=== PATIENT | male | born 1975 | race African-American/Black ===

== ENCOUNTER 2021-08-18 18:22 | Inpatient (IN) | payer SELFPAY ==
[~2021-08-18] VITALS: Ht 177.8 cm; Wt 85.8 kg
[2021-08-18] MEDS ORDERED: LIDOCAINE 1% Multi-Dose 20 ML VIAL. ONE (18:37)
[2021-08-18] MEDS ORDERED: fentaNYL PF VIAL 100 MCG/2 ML VIAL ONE (18:37)
[2021-08-18] MEDS ORDERED: MIDAZOLAM HCL/PF 2 MG/2 ML VIAL. ONE (18:37)
[2021-08-18] MEDS ORDERED: IODIXANOL 320 MG/ML 100 ML VIAL. ONE ×3 (18:37→19:22)
[2021-08-18] MEDS ORDERED: HEPARIN for ARTERIAL LINE 1,500 ML ONE (18:38)
[2021-08-18] MEDS ORDERED: HEPARIN for IV BOLUS 10,000 UNIT/10 ML VIAL. IV ONE ×2 (18:45→23:00)
[2021-08-18] MEDS ORDERED: HEPARIN for IV BOLUS 10,000 UNIT/10 ML VIAL. ONE (18:47)
[2021-08-18 18:53] LABS: BASO # 0.1 x10^3/uL (0.0-0.2); BASO % 1 % (0-3); EOS # 0.2 x10^3/uL (0.0-0.7); EOS % 4 % (0-3); HEMATOCRIT 45.8 % (39.0-53.0); HEMOGLOBIN 15.5 g/dL (13.0-17.5); LYMPH # 1.6 x10^3/uL (1.0-4.8); LYMPH % 29 % (24-48); MEAN CORPUSCULAR HEMOGLOBIN 29 pg (25-35); MEAN CORPUSCULAR HGB CONC 34 g/dL (31-37); MEAN CORPUSCULAR VOLUME 86 fL (79-100); MONO # 0.6 x10^3/uL (0.0-1.1); MONO % 11 % (0-9); NEUT % 56 % (31-73); PLATELET COUNT 223 x10^3/uL (140-400); RED BLOOD COUNT 5.34 x10^6/uL (4.30-5.70); RED CELL DISTRIBUTION WIDTH 14.8 % (11.5-14.5); WHITE BLOOD COUNT 5.4 x10^3/uL (4.0-11.0)
--- NOTE | 2021-08-18 18:54 | PHYS DOC ---
General Adult EDM: Chief Complaint: CHEST PAIN HPI: HPI: Patient is a 46 year old presents to the ER today with left anterior chest wall pain that radiates into neck. Patient was brought in by medics with a STEMI alert. Patient states over the last week that he has been having intermittent exertional chest pain that is getting worse and more frequent. Patient states that the pain feels like crushing chest pain on his midsternal chest. Patient does have a history of NC in the past does smoke cigarettes. Does have a history of hypertension and a strong family history. Review of Systems: Review of Systems: Constitutional: Denies fever or chills. [] Eyes: Denies change in visual acuity. [] HENT: Denies nasal congestion or sore throat. [] Respiratory: Denies cough or shortness of breath. [] Cardiovascular: Chest pain with radiation into the left neck. Dyspnea on exertion GI: Denies abdominal pain, nausea, vomiting, bloody stools or diarrhea. [] : Denies dysuria. [] Musculoskeletal: Denies back pain or joint pain. [] Integument: Denies rash. [] Neurologic: Denies headache, focal weakness or sensory changes. [] Endocrine: Denies polyuria or polydipsia. [] Lymphatic: Denies swollen glands. [] Psychiatric: Denies depression or anxiety. [] Heart Score: C/O Chest Pain: No HEART Score for Chest Pain: HEART Score for Chest Pain Response (Comments) Value History Highly Suspicious [address] Depression 2 Age >45 - < 65 1 Risk Factors >3 Risk Factors or Hx CAD 2 Total 7 Risk Factors: Risk Factors: DM, Current or recent (<one month) smoker, HTN, HLP, family history of CAD, obesity. Risk Scores: Score 0 - 3: 2.5% MACE over next 6 weeks - Discharge Home Score 4 - 6: 20.3% MACE over next 6 weeks - Admit for Clinical Observation Score 7 - 10: 72.7% MACE over next 6 weeks - Early Invasive Strategies Current Medications: Current Medications Medications (Trade) Dose Ordered Sig/Gloria Start Time Stop Time Status Last Admin Dose Admin Fentanyl Citrate (Fentanyl 2ml Vial) 100 mcg STK-MED ONCE 08/18/21 18:37 08/18/21 18:37 DC Heparin Sodium (Porcine) (Heparin Sodium) 4,000 unit 1X ONCE 08/18/21 18:45 08/18/21 18:46 UNV Heparin Sodium/ Sodium Chloride 1,500 ml @ As Directed STK-MED ONCE 08/18/21 18:38 08/18/21 18:38 DC Iodixanol (Visipaque 320) 100 ml STK-MED ONCE 08/18/21 18:37 08/18/21 18:37 DC Lidocaine HCl (Lidocaine 1% 20ml Vial) 20 ml STK-MED ONCE 08/18/21 18:37 08/18/21 18:38 DC Midazolam HCl (Versed) 2 mg STK-MED ONCE 08/18/21 18:37 08/18/21 18:37 DC Allergies: Allergies: Allergies Coded Allergies Type Severity Reaction Last Updated Verified No Known Drug Allergies 08/18/21 No Physical Exam: PE: Constitutional: Well developed, well nourished, no acute distress, non-toxic appearance. Patient appears sedated [] HENT: Normocephalic, atraumatic, bilateral external ears normal, oropharynx moist, no oral exudates, nose normal. [] Eyes: PERRLA, EOMI, conjunctiva normal, no discharge. [] Neck: Normal range of motion, no tenderness, supple, no stridor. [] Cardiovascular:Heart rate regular rhythm, no murmur [] Lungs & Thorax: Bilateral breath sounds clear to auscultation [] Abdomen: Bowel sounds normal, soft, no tenderness, no masses, no pulsatile masses. [] Skin: Warm, dry, no erythema, no rash. [] Back: No tenderness, no CVA tenderness. [] Extremities: No tenderness, no cyanosis, no clubbing, ROM intact, no edema. [] Neurologic: Alert and oriented X 3, normal motor function, normal sensory function, no focal deficits noted. [] Psychologic: Affect normal, judgement normal, mood normal. [] EKG: EKG: [] Patient is EKG is also different medics show significant ST elevations in 1 and aVL with depressions in 2 3 aVF as well as anterior wall ST elevations. Patient has a deep symmetrical T wave inversion in V6. EKG that was done in the ER demonstrates a normal sinus rhythm with a heart rate of 81. Patient has significant ST elevations in anterior leads with deep symme trical T wave inversion in V6 Radiology/Procedures: Radiology/Procedures: [] Course & Med Decision Making: Course & Med Decision Making Pertinent Labs and Imaging studies reviewed. (See chart for details) [] Interventional cardiology at bedside will take to the [facility] Discussed with hospitalist Adrianna Disclaimer: Adrianna Disclaimer: This electronic medical record was generated, in whole or in part, using a voice recognition dictation system. Departure Departure Impression: Primary Impression: STEMI (ST elevation myocardial infarction) Disposition: ADMITTED INPATIENT Condition: CRITICAL WILLIAM VIDALES DO Aug 18, 2021 18:54
[2021-08-18] MEDS ORDERED: MORPHINE SULFATE 2 MG/ML INJ. IV PRN (19:00)
[2021-08-18] MEDS ORDERED: 0.9 % SODIUM CHLORIDE 10 ML DISP.SYRIN. IV PRN (19:00)
[2021-08-18] MEDS ORDERED: ZOLPIDEM 5 MG TABLET. PO PRN (19:00)
[2021-08-18 19:05] LABS: PROTHROMBIN TIME PATIENT 12.9 SEC (11.7-14.0)
--- NOTE | 2021-08-18 19:09 | RAD ---
EXAMINATION: Chest radiograph. VIEWS: Single AP view of the chest COMPARISON: None INDICATION:46 years, Male, chest pain. FINDINGS: Defibrillator pads noted. Heart is mildly enlarged. Central pulmonary vasculature is prominent. Sligh tly increased interstitial markings. No focal airspace consolidation. No pneumothorax or pleural effu xavier. No pleural effusion or pneumothorax. No acute osseous process. IMPRESSION: Mild cardiomegaly with findings of pulmonary vascular congestion without overt interstitial pulmonary edema. Electronically signed by: Dallas Tapia DO (08/18/2021 7:07 PM) [facility]
--- NOTE | 2021-08-18 19:12 | PDOC1 ---
History and Physical Date of Admission Date of Admission DATE: 08/18/21 TIME: 19:03 Identification/Chief Complaint Chief Complaint Chest pain Source Source: Patient History of Present Illness History of Present Illness Patient is a 46-year-old male with past medical history hypertension, who presents to the ED with complaints of left-sided chest pain for the past week. Patient reports squeezing, crushing pressure. He was brought into the ER as a code STEMI. EKG on arrival showed ST elevations in lead 1, aVL, and anterior wall ST elevations. Cardiology was consulted and will take patient to the Microbiology Supervisor. Will admit patient for further medical management. Past Medical History Cardiovascular: HTN Past Surgical History Past Surgical History: No pertinent history Family History Family History: Coronary Artery Disease Social History Smoke: <1 pack per day ALCOHOL: occassional Drugs: Marijuana Current Problem List Problem List Problems Medical Problems: (1) STEMI (ST elevation myocardial infarction) Status: Acute Current Medications Current Medications Current Medications Fentanyl Citrate (Fentanyl 2ml Vial) 100 mcg STK-MED ONCE .ROUTE ; Start 08/18/21 at 18:37; Stop 08/18/21 at 18:37; Status DC Midazolam HCl (Versed) 2 mg STK-MED ONCE .ROUTE ; Start 08/18/21 at 18:37; Stop 08/18/21 at 18:37; Status DC Iodixanol (Visipaque 320) 100 ml STK-MED ONCE .ROUTE ; Start 08/18/21 at 18:37; Stop 08/18/21 at 18:37; Status DC Lidocaine HCl (Lidocaine 1% 20ml Vial) 20 ml STK-MED ONCE .ROUTE ; Start 08/18/21 at 18:37; Stop 08/18/21 at 18:38; Status DC Heparin Sodium/ Sodium Chloride 1,500 ml @ As Directed STK-MED ONCE .ROUTE ; Start 08/18/21 at 18:38; Stop 08/18/21 at 18:38; Status DC Heparin Sodium (Porcine) (Heparin Sodium) 4,000 unit 1X ONCE IV Last administered on 08/18/21at 18:53; Start 08/18/21 at 18:45; Stop 08/18/21 at 18:47; Status DC Heparin Sodium (Porcine) (Heparin Sodium) 10,000 unit STK-MED ONCE .ROUTE ; Start 08/18/21 at 18:47; Stop 08/18/21 at 18:47; Status DC Iodixanol (Visipaque 320) 100 ml STK-MED ONCE .ROUTE ; Start 08/18/21 at 18:54; Stop 08/18/21 at 18:55; Status DC Allergies Allergies: Coded Allergies: No Known Drug Allergies (Unverified , 08/18/21) ROS Review of System GENERAL: No history of weight change, weakness or fevers. SKIN: No bruising, hair changes or rashes. EYES: No blurred, double or loss of vision. NOSE AND THROAT: No history of nosebleeds, hoarseness or sore throat. HEART: Left-sided chest pain. Denies palpitations. LUNGS: Denies cough, hemoptysis, wheezing or shortness of breath. GASTROINTESTINAL: Denies nausea, vomiting, abdominal pain. GENITOURINARY: Denies dysuria, frequency, urgency, hematuria. NEUROLOGIC: Denies history of numbness, tingling, tremor or weakness. PSYCHIATRIC: Denies anxiety, denies depression. ENDOCRINE: No history of heat or cold intolerance, polyuria or polydipsia. EXTREMITIES: Denies muscle weakness, joint pain, pain on walking or stiffness. Physical Exam Physical Exam General: Alert, Oriented X3, Cooperative, mild distress HEENT: PERRLA, EOMI Lungs: Clear to auscultation, Normal air movement Heart: RRR, no murmurs Cardiovascular: S1, S2 Abdomen: Normal bowel sounds, Soft, No tenderness Extremities: No clubbing, No cyanosis Skin: No rashes, No significant lesion Neuro: Normal speech, Normal tone, Sensation intact Psych/Mental Status: Mental status NL, Mood NL Labs Labs Laboratory Tests Test 08/18/21 18:30 White Blood Count 5.4 x10^3/uL (4.0-11.0) Red Blood Count 5.34 x10^6/uL (4.30-5.70) Hemoglobin 15.5 g/dL (13.0-17.5) Hematocrit 45.8 % (39.0-53.0) Mean Corpuscular Volume 86 fL (79-100) Mean Corpuscular Hemoglobin 29 pg (25-35) Mean Corpuscular Hemoglobin Concent 34 g/dL (31-37) Red Cell Distribution Width 14.8 % (11.5-14.5) Platelet Count 223 x10^3/uL (140-400) Neutrophils (%) (Auto) 56 % (31-73) Lymphocytes (%) (Auto) 29 % (24-48) Monocytes (%) (Auto) 11 % (0-9) Eosinophils (%) (Auto) 4 % (0-3) Basophils (%) (Auto) 1 % (0-3) Neutrophils # (Auto) 3.0 x10^3/uL (1.8-7.7) Lymphocytes # (Auto) 1.6 x10^3/uL (1.0-4.8) Monocytes # (Auto) 0.6 x10^3/uL (0.0-1.1) Eosinophils # (Auto) 0.2 x10^3/uL (0.0-0.7) Basophils # (Auto) 0.1 x10^3/uL (0.0-0.2) Laboratory Tests Test 08/18/21 18:30 White Blood Count 5.4 x10^3/uL (4.0-11.0) Red Blood Count 5.34 x10^6/uL (4.30-5.70) Hemoglobin 15.5 g/dL (13.0-17.5) Hematocrit 45.8 % (39.0-53.0) Mean Corpuscular Volume 86 fL (79-100) Mean Corpuscular Hemoglobin 29 pg (25-35) Mean Corpuscular Hemoglobin Concent 34 g/dL (31-37) Red Cell Distribution Width 14.8 % (11.5-14.5) Platelet Count 223 x10^3/uL (140-400) Neutrophils (%) (Auto) 56 % (31-73) Lymphocytes (%) (Auto) 29 % (24-48) Monocytes (%) (Auto) 11 % (0-9) Eosinophils (%) (Auto) 4 % (0-3) Basophils (%) (Auto) 1 % (0-3) Neutrophils # (Auto) 3.0 x10^3/uL (1.8-7.7) Lymphocytes # (Auto) 1.6 x10^3/uL (1.0-4.8) Monocytes # (Auto) 0.6 x10^3/uL (0.0-1.1) Eosinophils # (Auto) 0.2 x10^3/uL (0.0-0.7) Basophils # (Auto) 0.1 x10^3/uL (0.0-0.2) VTE Prophylaxis Ordered VTE Prophylaxis Devices: No VTE Pharmacological Prophylaxi: Yes Assessment/Plan Assessment/Plan STEMI Hypertension Plan: Consult cardiology Patient taken urgently to Microbiology Supervisor, then ICU. He will be initiated on aspirin, beta-cyrus, statin, and FRANKIE/ARB prior to discharge Will establish tight blood pressure control prior to discharge FEN - Cardiac diet PPX - Heparin FULL CODE Dispo - inpatient for above Justifications for Admission Other Justification JANELLE RINCON MD Aug 18, 2021 19:12
[2021-08-18 19:14] LABS: CALCIUM 9.5 mg/dL (8.5-10.1); CREATININE 1.3 mg/dL (0.7-1.3); GFR 58.9; POTASSIUM 3.9 mmol/L (3.5-5.1)
[2021-08-18] MEDS ORDERED: hydrALAZINE 20 MG/ML VIAL. IVP PRN (19:15)
[2021-08-18] MEDS ORDERED: NITROGLYCERIN PREMIX 250 ML IV ONE (19:17)
[2021-08-18 19:23] LABS: ALBUMIN 3.5 g/dL (3.4-5.0); TOTAL BILIRUBIN 0.4 mg/dL (0.2-1.0)
[2021-08-18] MEDS ORDERED: IODIXANOL 320 MG/ML 100 ML VIAL. IART ONE (19:30)
[2021-08-18] MEDS ORDERED: NITROGLYCERIN PREMIX 250 ML IV PRN (19:30)
[2021-08-18] MEDS ORDERED: LIDOCAINE 1% Multi-Dose 20 ML VIAL. INJ ONE (19:30)
[2021-08-18 19:58] VITALS: BP 168/99
[2021-08-18] MEDS ORDERED: CLOPIDOGREL BISULFATE 75 MG TABLET PO ONE (20:00)
--- NOTE | 2021-08-18 20:24 | PDOC2 ---
CONSULT Date of Consult Date of Consult DATE: 08/18/21 TIME: 20:18 Reason for Consult Reason for Consult: Chest pain. Possible ST elevated myocardial infarction Referring Physician Referring Physician: Dr. Wolff Identification/Chief Complaint Chief Complaint Chest pain Source Source: Chart review, Patient History of Present Illness Reason for Visit: The patient is an 46-year-old male who presented to the emergency room with chest pain since earlier this morning. His EKG in the ambulance showed ST elevation in the septal and anterior leads but no clear inferior reciprocal changes. He was treated with aspirin and sedation. Upon arrival in the emergency room the patient was continuing to have chest pain. His EKG again showed a sinus rhythm with ST segment elevation in the septal and anterior leads with some T wave inversion in the V6. There is no classic reciprocal changes. He has a reported history of a myocardial infarction in [place] 2 years ago. He reports he had a heart cath but no stent placement. He also has a history of hypertension. He denies any drug allergies. He is on no medications. Past Medical History Cardiovascular: CAD, HTN Past Surgical History Past Surgical History: Other (Reported heart cath but no stent placement 2 years ago.) Family History Family History: Coronary Artery Disease, Hypertension Social History <1 pack per day ALCOHOL: occassional Drugs: Marijuana Current Problem List Problem List Problems Medical Problems: (1) STEMI (ST elevation myocardial infarction) Status: Acute Current Medications Current Medications Current Medications Fentanyl Citrate (Fentanyl 2ml Vial) 100 mcg STK-MED ONCE .ROUTE ; Start 08/18/21 at 18:37; Stop 08/18/21 at 18:37; Status DC Midazolam HCl (Versed) 2 mg STK-MED ONCE .ROUTE ; Start 08/18/21 at 18:37; Stop 08/18/21 at 18:37; Status DC Iodixanol (Visipaque 320) 100 ml STK-MED ONCE .ROUTE ; Start 08/18/21 at 18:37; Stop 08/18/21 at 18:37; Status DC Lidocaine HCl (Lidocaine 1% 20ml Vial) 20 ml STK-MED ONCE .ROUTE ; Start 08/18/21 at 18:37; Stop 08/18/21 at 18:38; Status DC Heparin Sodium/ Sodium Chloride 1,500 ml @ As Directed STK-MED ONCE .ROUTE ; Start 08/18/21 at 18:38; Stop 08/18/21 at 18:38; Status DC Heparin Sodium (Porcine) (Heparin Sodium) 4,000 unit 1X ONCE IV Last administered on 08/18/21at 18:53; Start 08/18/21 at 18:45; Stop 08/18/21 at 18:47; Status DC Heparin Sodium (Porcine) (Heparin Sodium) 10,000 unit STK-MED ONCE .ROUTE ; Start 08/18/21 at 18:47; Stop 08/18/21 at 18:47; Status DC Iodixanol (Visipaque 320) 100 ml STK-MED ONCE .ROUTE ; Start 08/18/21 at 18:54; Stop 08/18/21 at 18:55; Status DC Acetaminophen (Tylenol) 650 mg PRN Q6HRS PRN PO Headaches, Temp > 101.5'; Start 08/18/21 at 19:00 Zolpidem Tartrate (Ambien) 5 mg PRN QHS PRN PO INSOMNIA, MAY REPEAT IN 1HR; Start 08/18/21 at 19:00 Heparin Sodium (Porcine) (Heparin Sodium) 5,000 unit Q8HRS SQ ; Start 08/18/21 at 22:00 Sodium Chloride (Normal Saline Flush) 3 ml QSHIFT PRN IV AFTER MEDS AND BLOOD DRAWS; Start 08/18/21 at 19:00 Acetaminophen/ Hydrocodone Bitart (Lortab 5/325) 1 tab PRN Q4HRS PRN PO MILD PAIN 1-3; Start 08/18/21 at 19:00 Morphine Sulfate (Morphine Sulfate) 2 mg PRN Q1HR PRN IV PAIN; Start 08/18/21 at 19:00 Hydralazine HCl (Apresoline Inj) 10 mg PRN Q4HRS PRN IVP HYPERTENSION; Start 08/18/21 at 19:15 Nitroglycerin/ Dextrose 250 ml @ As Directed STK-MED ONCE IV ; Start 08/18/21 at 19:17; Stop 08/18/21 at 19:18; Status DC Iodixanol (Visipaque 320) 100 ml STK-MED ONCE .ROUTE ; Start 08/18/21 at 19:22; Stop 08/18/21 at 19:22; Status DC Heparin Sodium/ Sodium Chloride (HEPARIN for ARTERIAL LINE FLUSH) 1,000 unit 1X ONCE IART Last administered on 08/18/21at 19:38; Start 08/18/21 at 19:30; Stop 08/18/21 at 19:31; Status DC Heparin Sodium/ Sodium Chloride (HEPARIN for ARTERIAL LINE FLUSH) 1,000 unit 1X ONCE IART Last administered on 08/18/21 19:38; Start 08/18/21 at 19:30; Stop 08/18/21 at 19:31; Status DC Iodixanol (Visipaque 320) 100 ml 1X ONCE IART Last administered on 08/18/21at 19:38; Start 08/18/21 at 19:30; Stop 08/18/21 at 19:31; Status DC Lidocaine HCl (Lidocaine 1% 20ml Vial) 20 ml 1X ONCE INJ Last administered on 08/18/21at 19:39; Start 08/18/21 at 19:30; Stop 08/18/21 at 19:31; Status DC Nitroglycerin/ Dextrose 250 ml @ 1.5 mls/hr PRN DAILY PRN IV ELEVATED BP, SEE COMMENTS Last administered on 08/18/21at 19:45; Start 08/18/21 at 19:30 Clopidogrel Bisulfate (Plavix) 300 mg 1X ONCE PO Last administered on 08/18/21at 19:58; Start 08/18/21 at 20:00; Stop 08/18/21 at 20:01; Status DC Allergies Allergies: Coded Allergies: No Known Drug Allergies (Unverified , 08/18/21) ROS Cardiovascular: yes Chest Pain Physical Exam General: Other (Mild to moderate distress) HEENT: Atraumatic Lungs: Clear to auscultation Heart: Regular rate Abdomen: Normal bowel sounds Vitals VITALS Vital Signs Date Time Temp Pulse Resp B/P (MAP) Pulse Ox O2 Delivery O2 Flow Rate FiO2 08/18/21 19:58 56 16 100 Nasal Cannula 2.0 08/18/21 18:22 98.6 153/88 (109) 98.6 Labs Labs Originally in the emergency room patient's labs were pending. Laboratory Tests Test 08/18/21 18:30 White Blood Count 5.4 x10^3/uL (4.0-11.0) Red Blood Count 5.34 x10^6/uL (4.30-5.70) Hemoglobin 15.5 g/dL (13.0-17.5) Hematocrit 45.8 % (39.0-53.0) Mean Corpuscular Volume 86 fL (79-100) Mean Corpuscular Hemoglobin 29 pg (25-35) Mean Corpuscular Hemoglobin Concent 34 g/dL (31-37) Red Cell Distribution Width 14.8 % (11.5-14.5) Platelet Count 223 x10^3/uL (140-400) Neutrophils (%) (Auto) 56 % (31-73) Lymphocytes (%) (Auto) 29 % (24-48) Monocytes (%) (Auto) 11 % (0-9) Eosinophils (%) (Auto) 4 % (0-3) Basophils (%) (Auto) 1 % (0-3) Neutrophils # (Auto) 3.0 x10^3/uL (1.8-7.7) Lymphocytes # (Auto) 1.6 x10^3/uL (1.0-4.8) Monocytes # (Auto) 0.6 x10^3/uL (0.0-1.1) Eosinophils # (Auto) 0.2 x10^3/uL (0.0-0.7) Basophils # (Auto) 0.1 x10^3/uL (0.0-0.2) Prothrombin Time 12.9 SEC (11.7-14.0) Prothromb Time International Ratio 1.0 (0.8-1.1) Sodium Level 140 mmol/L (136-145) Potassium Level 3.9 mmol/L (3.5-5.1) Chloride Level 104 mmol/L (98-107) Carbon Dioxide Level 30 mmol/L (21-32) Anion Gap 6 (6-14) Blood Urea Nitrogen 13 mg/dL (8-26) Creatinine 1.3 mg/dL (0.7-1.3) Estimated GFR (Cockcroft-Gault) 58.9 BUN/Creatinine Ratio 10 (6-20) Glucose Level 105 mg/dL (70-99) Calcium Level 9.5 mg/dL (8.5-10.1) Total Bilirubin 0.4 mg/dL (0.2-1.0) Aspartate Amino Transf (AST/SGOT) 16 U/L (15-37) Alanine Aminotransferase (ALT/SGPT) 18 U/L (16-63) Alkaline Phosphatase 93 U/L (46-116) Troponin I High Sensitivity 125 ng/L (4-75) Total Protein 7.0 g/dL (6.4-8.2) Albumin 3.5 g/dL (3.4-5.0) Albumin/Globulin Ratio 1.0 (1.0-1.7) Laboratory Tests Test 08/18/21 18:30 White Blood Count 5.4 x10^3/uL (4.0-11.0) Red Blood Count 5.34 x10^6/uL (4.30-5.70) Hemoglobin 15.5 g/dL (13.0-17.5) Hematocrit 45.8 % (39.0-53.0) Mean Corpuscular Volume 86 fL (79-100) Mean Corpuscular Hemoglobin 29 pg (25-35) Mean Corpuscular Hemoglobin Concent 34 g/dL (31-37) Red Cell Distribution Width 14.8 % (11.5-14.5) Platelet Count 223 x10^3/uL (140-400) Neutrophils (%) (Auto) 56 % (31-73) Lymphocytes (%) (Auto) 29 % (24-48) Monocytes (%) (Auto) 11 % (0-9) Eosinophils (%) (Auto) 4 % (0-3) Basophils (%) (Auto) 1 % (0-3) Neutrophils # (Auto) 3.0 x10^3/uL (1.8-7.7) Lymphocytes # (Auto) 1.6 x10^3/uL (1.0-4.8) Monocytes # (Auto) 0.6 x10^3/uL (0.0-1.1) Eosinophils # (Auto) 0.2 x10^3/uL (0.0-0.7) Basophils # (Auto) 0.1 x10^3/uL (0.0-0.2) Prothrombin Time 12.9 SEC (11.7-14.0) Prothromb Time International Ratio 1.0 (0.8-1.1) Sodium Level 140 mmol/L (136-145) Potassium Level 3.9 mmol/L (3.5-5.1) Chloride Level 104 mmol/L (98-107) Carbon Dioxide Level 30 mmol/L (21-32) Anion Gap 6 (6-14) Blood Urea Nitrogen 13 mg/dL (8-26) Creatinine 1.3 mg/dL (0.7-1.3) Estimated GFR (Cockcroft-Gault) 58.9 BUN/Creatinine Ratio 10 (6-20) Glucose Level 105 mg/dL (70-99) Calcium Level 9.5 mg/dL (8.5-10.1) Total Bilirubin 0.4 mg/dL (0.2-1.0) Aspartate Amino Transf (AST/SGOT) 16 U/L (15-37) Alanine Aminotransferase (ALT/SGPT) 18 U/L (16-63) Alkaline Phosphatase 93 U/L (46-116) Troponin I High Sensitivity 125 ng/L (4-75) Total Protein 7.0 g/dL (6.4-8.2) Albumin 3.5 g/dL (3.4-5.0) Albumin/Globulin Ratio 1.0 (1.0-1.7) Assessment/Plan Assessment/Plan 1. Chest pain. Anterior ST segment elevation as noted above. Possible ST elevated myocardial infarction. History of an infarct 2 years ago with catheterization but no stent placement. However the patient reports being on no medication at this time. Have treated with aspirin and heparin. In this setting have recommended emergency catheterization and possible revascularization. Risks and benefits were discussed with the patient. He has agreed to proceed. 2. Hypertension. Patient's blood pressure is elevated in the emergency room but he is in significant distress. Will monitor and probably need to start on antihypertensive medications. 3. Tobacco abuse. 4. Uncertain cholesterol level. Will check lab in the morning. Thank you for allowing us to participate in the care of your patient. HARSH BENTLEY MD Aug 18, 2021 20:24
--- NOTE | 2021-08-18 20:26 | PDOC ---
FOLLOW UP Patient underwent cardiac catheterization without complications. Significant findings were moderate LAD disease with possible mild bridging. No lesions greater than 50%. Normal LV systolic function. Patient's pain has resolved. Will continue to monitor in the ICU. We will start on baseline medications for coronary artery disease. Full report to follow. HARSH BENTLEY MD Aug 18, 2021 20:26
[2021-08-18 20:30] VITALS: BP 131/86
[2021-08-18 21:00] VITALS: BP 159/94
[2021-08-18 22:00] VITALS: BP 160/96
[2021-08-18] MEDS ORDERED: HEPARIN for SUB-Q USE 5,000 UNIT/ML VIAL. SQ SCH (22:00)
[2021-08-18] MEDS ORDERED: HEPARIN for IV BOLUS 10,000 UNIT/10 ML VIAL. IV PRN (22:30)
[2021-08-18] MEDS ORDERED: ANTI-COAG MONITOR BY PHARMACY. MC PRN (22:45)
[2021-08-18] MEDS: HEPARIN 25,000UTS/250ML PREMIX 250 ML IV PRN (22:48)
[2021-08-18 23:00] VITALS: BP 167/88
[2021-08-19] VITALS (15 sets, daily range): BP systolic 119–175; BP diastolic 66–95
--- NOTE | 2021-08-19 00:45 | EKG ---
[facility] [address] [place] [address] Test Date: 2021-08-18 Test Time: 18:24:39 Pat Name: NAHOMY DESOUZA Department: Room: 104 1 Gender: M [employer]: : 1975 Requested By: WILLIAM VIDALES Order Number: [id number] Reading MD: Ptarick Dickinson Measurements Intervals [place] Rate: 81 P: 16 OR: 186 QRS: -33 QRSD: 90 T: 14 QT: 380 QTc: 447 Interpretive Statements SINUS RHYTHM LEFT ATRIAL ABNORMALITY ABNORMAL LEFT AXIS DEVIATION INCOMPLETE RIGHT BUNDLE BRANCH BLOCK NON SPECIFIC ST-T WAVE CHANGES POSSIBLE ISCHEMIA Electronically Signed On 08-19-2021 16:26:08 CDT by Patrick Dickinson
[2021-08-19] MEDS: ACETAMINOPHEN 325 MG TABLET. PO PRN ×2 (05:03→16:28)
--- NOTE | 2021-08-19 05:39 | NUR ---
Pt was brought to ICU at [facility] [employer]. Pt a/o x4, bedrest per protocol post ship[employer], afebrile, room air. Pt has denied any chest pain all shift and right groin site is warm, soft with palpable pulses on right side. Pt's was called and updated about patient condition. Heparin drip was started using cardiac protocol per doctor orders. Pt's only complaint is a headache, tylenol given.
[2021-08-19 05:51] LABS: BASO # 0.1 x10^3/uL (0.0-0.2); BASO % 1 % (0-3); EOS # 0.2 x10^3/uL (0.0-0.7); EOS % 4 % (0-3); HEMATOCRIT 44.7 % (39.0-53.0); HEMOGLOBIN 15.3 g/dL (13.0-17.5); LYMPH # 1.8 x10^3/uL (1.0-4.8); LYMPH % 32 % (24-48); MEAN CORPUSCULAR HEMOGLOBIN 29 pg (25-35); MEAN CORPUSCULAR HGB CONC 34 g/dL (31-37); MEAN CORPUSCULAR VOLUME 85 fL (79-100); MONO # 0.6 x10^3/uL (0.0-1.1); MONO % 11 % (0-9); NEUT # 2.9 x10^3/uL (1.8-7.7); NEUT % 52 % (31-73); PLATELET COUNT 206 x10^3/uL (140-400); RED BLOOD COUNT 5.24 x10^6/uL (4.30-5.70); RED CELL DISTRIBUTION WIDTH 14.9 % (11.5-14.5); WHITE BLOOD COUNT 5.7 x10^3/uL (4.0-11.0)
[2021-08-19 06:23] LABS: CALCIUM 8.4 mg/dL (8.5-10.1); CREATININE 1.1 mg/dL (0.7-1.3); GFR 71.4; POTASSIUM 3.9 mmol/L (3.5-5.1)
[2021-08-19 06:34] LABS: CHOLESTEROL/HDL RATIO 2.8
--- NOTE | 2021-08-19 09:31 | PDOC ---
[facility] PROGRESS NOTE Date of Service DOS: DATE: 08/19/21 TIME: 09:29 Chief Complaint Chief Complaint Anterior STEMI - per cardiology was coronary vasopasm. No significant CAD. Myocardial bridging noted by information resource consultant. HTN -started on amlodipine isosorbide Tobacco use - counseled on cessatino Sinus bradycardia -asymptomatic. Will check orthostatics after echocardiogram. Unable to take beta-cyrus or non-dihydropyridine calcium channel cyrus (verapamil and diltiazem relatively contraindicated) ? H/o HOCM -with early cardiac actions monitor this possibility. Due to his traveling for work he has not had any cardiology follow-up. Will assess on echocardiogram today FEN - Cardiac diet PPX - Heparin FULL CODE Dispo - inpatient History of Present Illness History of Present Illness Patient is a 46-year-old male with past medical history hypertension, who presents to the ED with complaints of left-sided chest pain for the past week. Patient reports squeezing, crushing pressure. He was brought into the ER as a code STEMI. EKG on arrival showed ST elevations in lead 1, aVL, and anterior wall ST elevations. Cardiology was consulted and will take patient to the Fluorescent Lamp Replacer. 08/19: Maintained on heparin GTT. S/p cardiac cath on 08/18/2021 with no stent placement, medical management for CAD. He has some right groin pain currently chest pain improved no shortness of breath. Did have cardiac cath in [place] over 2 years ago with same but he notes that time he was diagnosed with HOCM. He does note his mother early of sudden cardiac he thinks in her 50s. He travels for work and has been working in [employer] all of the country has experienced any other hospitalizations since his event 2 years ago. Cardiology has started her blood isosorbide and amlodipine. His heart rate has been in the 50s.. Vitals/I&O Vitals/I&O: Vital Signs Date Time Temp Pulse Resp B/P (MAP) Pulse Ox O2 Delivery O2 Flow Rate FiO2 08/19/21 06:00 63 15 147/92 (110) 100 Room Air 08/19/21 04:00 98.3 98.3 08/18/21 19:58 2.0 I & O 08/18/21 08/18/21 08/19/21 15:00 23:00 07:00 Intake Total 500 ml 341.3 ml Output Total 400 ml 800 ml Balance 100 ml -458.7 ml Physical Exam General: Other (Mild to moderate distress) Heart: Regular rate Abdomen: Normal bowel sounds Labs Labs: Laboratory Tests Test 08/18/21 18:30 08/18/21 21:50 08/19/21 05:25 White Blood Count 5.4 x10^3/uL (4.0-11.0) 5.7 x10^3/uL (4.0-11.0) Red Blood Count 5.34 x10^6/uL (4.30-5.70) 5.24 x10^6/uL (4.30-5.70) Hemoglobin 15.5 g/dL (13.0-17.5) 15.3 g/dL (13.0-17.5) Hematocrit 45.8 % (39.0-53.0) 44.7 % (39.0-53.0) Mean Corpuscular Volume 86 fL (79-100) 85 fL (79-100) Mean Corpuscular Hemoglobin 29 pg (25-35) 29 pg (25-35) Mean Corpuscular Hemoglobin Concent 34 g/dL (31-37) 34 g/dL (31-37) Red Cell Distribution Width 14.8 % (11.5-14.5) 14.9 % (11.5-14.5) Platelet Count 223 x10^3/uL (140-400) 206 x10^3/uL (140-400) Neutrophils (%) (Auto) 56 % (31-73) 52 % (31-73) Lymphocytes (%) (Auto) 29 % (24-48) 32 % (24-48) Monocytes (%) (Auto) 11 % (0-9) 11 % (0-9) Eosinophils (%) (Auto) 4 % (0-3) 4 % (0-3) Basophils (%) (Auto) 1 % (0-3) 1 % (0-3) Neutrophils # (Auto) 3.0 x10^3/uL (1.8-7.7) 2.9 x10^3/uL (1.8-7.7) Lymphocytes # (Auto) 1.6 x10^3/uL (1.0-4.8) 1.8 x10^3/uL (1.0-4.8) Monocytes # (Auto) 0.6 x10^3/uL (0.0-1.1) 0.6 x10^3/uL (0.0-1.1) Eosinophils # (Auto) 0.2 x10^3/uL (0.0-0.7) 0.2 x10^3/uL (0.0-0.7) Basophils # (Auto) 0.1 x10^3/uL (0.0-0.2) 0.1 x10^3/uL (0.0-0.2) Prothrombin Time 12.9 SEC (11.7-14.0) Prothromb Time International Ratio 1.0 (0.8-1.1) Sodium Level 140 mmol/L (136-145) 139 mmol/L (136-145) Potassium Level 3.9 mmol/L (3.5-5.1) 3.9 mmol/L (3.5-5.1) Chloride Level 104 mmol/L (98-107) 106 mmol/L (98-107) Carbon Dioxide Level 30 mmol/L (21-32) 27 mmol/L (21-32) Anion Gap 6 (6-14) 6 (6-14) Blood Urea Nitrogen 13 mg/dL (8-26) 11 mg/dL (8-26) Creatinine 1.3 mg/dL (0.7-1.3) 1.1 mg/dL (0.7-1.3) Estimated GFR (Cockcroft-Gault) 58.9 71.4 BUN/Creatinine Ratio 10 (6-20) Glucose Level 105 mg/dL (70-99) 88 mg/dL (70-99) Calcium Level 9.5 mg/dL (8.5-10.1) 8.4 mg/dL (8.5-10.1) Total Bilirubin 0.4 mg/dL (0.2-1.0) Aspartate Amino Transf (AST/SGOT) 16 U/L (15-37) Alanine Aminotransferase (ALT/SGPT) 18 U/L (16-63) Alkaline Phosphatase 93 U/L (46-116) Troponin I High Sensitivity 125 ng/L (4-75) 136 ng/L (4-75) 137 ng/L (4-75) Total Protein 7.0 g/dL (6.4-8.2) Albumin 3.5 g/dL (3.4-5.0) Albumin/Globulin Ratio 1.0 (1.0-1.7) Heparin Anti-Xa Act, Unfractionated 0.44 IU/mL (0.30-0.70) Triglycerides Level 61 mg/dL (0-150) Cholesterol Level 158 mg/dL (0-200) LDL Cholesterol, Calculated 89 mg/dL (0-100) VLDL Cholesterol, Calculated 12 mg/dL (0-40) Non-HDL Cholesterol Calculated 101 mg/dL (0-129) HDL Cholesterol 57 mg/dL (40-60) Cholesterol/HDL Ratio 2.8 Assessment and Plan Assessmemt and Plan Problems Medical Problems: (1) STEMI (ST elevation myocardial infarction) Status: Acute Comment Review of Relevant I have reviewed the following items diana (where applicable) has been applied. Medications: Current Medications Medications (Trade) Dose Ordered Sig/Gloria Route PRN Reason Start Time Stop Time Status Last Admin Dose Admin Heparin Sodium (Porcine) (Heparin Sodium) 4,000 unit 1X ONCE IV 08/18/21 18:45 08/18/21 18:47 DC 08/18/21 18:53 Acetaminophen (Tylenol) 650 mg PRN Q6HRS PRN PO Headaches, Temp > 101.5' 08/18/21 19:00 08/19/21 05:03 Heparin Sodium/ Sodium Chloride (HEPARIN for ARTERIAL LINE FLUSH) 1,000 unit 1X ONCE IART 08/18/21 19:30 08/18/21 19:31 DC 08/18/21 19:38 Heparin Sodium/ Sodium Chloride (HEPARIN for ARTERIAL LINE FLUSH) 1,000 unit 1X ONCE IART 08/18/21 19:30 08/18/21 19:31 DC 08/18/21 19:38 Iodixanol (Visipaque 320) 100 ml 1X ONCE IART 08/18/21 19:30 08/18/21 19:31 DC 08/18/21 19:38 Lidocaine HCl (Lidocaine 1% 20ml Vial) 20 ml 1X ONCE INJ 08/18/21 19:30 08/18/21 19:31 DC 08/18/21 19:39 Nitroglycerin/ Dextrose 250 ml @ 1.5 mls/hr PRN DAILY PRN IV ELEVATED BP, SEE COMMENTS 08/18/21 19:30 08/18/21 19:45 Clopidogrel Bisulfate (Plavix) 300 mg 1X ONCE PO 08/18/21 20:00 08/18/21 20:01 DC 08/18/21 19:58 Heparin Sodium (Porcine) (Heparin Sodium) 4,000 unit 1X ONCE IV 08/18/21 23:00 08/18/21 23:01 DC 08/18/21 22:44 Heparin Sodium/ Dextrose 250 ml @ 10 mls/hr CONT PRN IV PER PROTOCOL 08/18/21 22:30 08/18/21 22:48 Info (Anti-Coagulation Monitoring By Pharmacy) 1 each PRN DAILY PRN MC PER PROTOCOL 08/18/21 22:45 08/19/21 00:47 Justifications for Admission Other Justification DAMIAN FUNES MD Aug 19, 2021 09:31
[2021-08-19] MEDS ORDERED: CLOPIDOGREL BISULFATE 75 MG TABLET PO ONE (10:00)
--- NOTE | 2021-08-19 10:05 | PDOC ---
GRACE SWENSON YARN TEXTURING MACHINE OPERATOR 08/19/21 1005: CARDIO Progress Notes Date and Time Date of Service 08/19/2021 Time of Evaluation 0940 Subjective Subjective: No Chest Pain, No shortness of breath, No Palpitations Vitals Vitals Vital Signs Date Time Temp Pulse Resp B/P (MAP) Pulse Ox O2 Delivery O2 Flow Rate FiO2 08/19/21 06:00 63 15 147/92 (110) 100 Room Air 08/19/21 04:00 98.3 98.3 08/18/21 19:58 2.0 Weight Weight [ ] Input and Output Intake and Output Intake and Output 08/19/21 07:00 Intake Total 841.3 ml Output Total 1200 ml Balance -358.7 ml Intake Oral 750 ml IV Total 91.3 ml Output Urine Total 1200 ml Laboratory Labs Laboratory Tests Test 08/18/21 18:30 08/18/21 21:50 08/19/21 05:25 White Blood Count 5.4 x10^3/uL (4.0-11.0) 5.7 x10^3/uL (4.0-11.0) Red Blood Count 5.34 x10^6/uL (4.30-5.70) 5.24 x10^6/uL (4.30-5.70) Hemoglobin 15.5 g/dL (13.0-17.5) 15.3 g/dL (13.0-17.5) Hematocrit 45.8 % (39.0-53.0) 44.7 % (39.0-53.0) Mean Corpuscular Volume 86 fL (79-100) 85 fL (79-100) Mean Corpuscular Hemoglobin 29 pg (25-35) 29 pg (25-35) Mean Corpuscular Hemoglobin Concent 34 g/dL (31-37) 34 g/dL (31-37) Red Cell Distribution Width 14.8 % (11.5-14.5) 14.9 % (11.5-14.5) Platelet Count 223 x10^3/uL (140-400) 206 x10^3/uL (140-400) Neutrophils (%) (Auto) 56 % (31-73) 52 % (31-73) Lymphocytes (%) (Auto) 29 % (24-48) 32 % (24-48) Monocytes (%) (Auto) 11 % (0-9) 11 % (0-9) Eosinophils (%) (Auto) 4 % (0-3) 4 % (0-3) Basophils (%) (Auto) 1 % (0-3) 1 % (0-3) Neutrophils # (Auto) 3.0 x10^3/uL (1.8-7.7) 2.9 x10^3/uL (1.8-7.7) Lymphocytes # (Auto) 1.6 x10^3/uL (1.0-4.8) 1.8 x10^3/uL (1.0-4.8) Monocytes # (Auto) 0.6 x10^3/uL (0.0-1.1) 0.6 x10^3/uL (0.0-1.1) Eosinophils # (Auto) 0.2 x10^3/uL (0.0-0.7) 0.2 x10^3/uL (0.0-0.7) Basophils # (Auto) 0.1 x10^3/uL (0.0-0.2) 0.1 x10^3/uL (0.0-0.2) Prothrombin Time 12.9 SEC (11.7-14.0) Prothromb Time International Ratio 1.0 (0.8-1.1) Sodium Level 140 mmol/L (136-145) 139 mmol/L (136-145) Potassium Level 3.9 mmol/L (3.5-5.1) 3.9 mmol/L (3.5-5.1) Chloride Level 104 mmol/L (98-107) 106 mmol/L (98-107) Carbon Dioxide Level 30 mmol/L (21-32) 27 mmol/L (21-32) Anion Gap 6 (6-14) 6 (6-14) Blood Urea Nitrogen 13 mg/dL (8-26) 11 mg/dL (8-26) Creatinine 1.3 mg/dL (0.7-1.3) 1.1 mg/dL (0.7-1.3) Estimated GFR (Cockcroft-Gault) 58.9 71.4 BUN/Creatinine Ratio 10 (6-20) Glucose Level 105 mg/dL (70-99) 88 mg/dL (70-99) Calcium Level 9.5 mg/dL (8.5-10.1) 8.4 mg/dL (8.5-10.1) Total Bilirubin 0.4 mg/dL (0.2-1.0) Aspartate Amino Transf (AST/SGOT) 16 U/L (15-37) Alanine Aminotransferase (ALT/SGPT) 18 U/L (16-63) Alkaline Phosphatase 93 U/L (46-116) Troponin I High Sensitivity 125 ng/L (4-75) 136 ng/L (4-75) 137 ng/L (4-75) Total Protein 7.0 g/dL (6.4-8.2) Albumin 3.5 g/dL (3.4-5.0) Albumin/Globulin Ratio 1.0 (1.0-1.7) Heparin Anti-Xa Act, Unfractionated 0.44 IU/mL (0.30-0.70) Triglycerides Level 61 mg/dL (0-150) Cholesterol Level 158 mg/dL (0-200) LDL Cholesterol, Calculated 89 mg/dL (0-100) VLDL Cholesterol, Calculated 12 mg/dL (0-40) Non-HDL Cholesterol Calculated 101 mg/dL (0-129) HDL Cholesterol 57 mg/dL (40-60) Cholesterol/HDL Ratio 2.8 Physical Exam HEENT: Neck Supple W Full Motion Chest: Symmetric LUNGS: Clear to Auscultation Heart: S1S2, RRR (SR/SB) Abdomen: Soft N/T Extremities: No Calf Tenderness Neurology: alert, oriented, follow commands Assessment Assessment 1. Anterior STEMI: due to vasopasm with also possible myocardial bridging.. LHC revealed no intervenable lesions.Final report pending 2. HTN: labile 3. Tobaccoism 4. Asymptomatic SB: lowest mid40s no pauses Recommendations 1. DC NTG drip and start on imdur and norvasc No AV jonny blocking agents. Trend BP 2. TTE today 3. ASA/plavix. Secondary prevention measures 4. Anticpate DC tomorrow. Heparin for 24 hrs post C 5. He is going back to [place] tomorrow and he will need cardiology refereral over there 6. Smoking cessation Justicifation of Admission Dx: Justifications for Admission: Justification of Admission Dx: Yes HARSH BENTLEY MD 08/19/21 1515: CARDIO Progress Notes Assessment Assessment Patient seen and examined He looks and feels better. I agree with our nurse practitioners assessment and plan. 1. Anterior NSTEMI: Possibly due to component of vasospasm. Moderate mid LAD disease. We will continue medical treatment. Intact LV systolic function. We will treat with aspirin and Plavix. We will try a trial of Imdur and Norvasc. Monitoring rhythm. 2. HTN: labile 3. Tobaccoism 4. Asymptomatic SB: lowest mid40s no pauses GRACE SWENSON YARN TEXTURING MACHINE OPERATOR Aug 19, 2021 10:05 HARSH BENTLEY MD Aug 19, 2021 15:15
--- NOTE | 2021-08-19 10:24 | CARD ---
MR#: [id number] Date of Study: 08/18/2021 Ordering Physician: HARSH DICKINSON, Referring Physician: HARSH DICKINSON, Tech: Barbara Quiles, RT(R) APPROVED REPORT Procedures Left heart catheterization Selective coronary angiogram Left ventriculogram The patient is a 46-year-old male who presented to the emergency room with episodes of chest pain. H is pain persisted despite aspirin and heparin. His EKG showed ST elevation in the septal and anterio r leads but no clear reciprocal changes. He reports a heart catheterization approximately 2 years ag o with no intervention performed. However he is taking no medications. In the setting of new onset of chest pain which has continued as well as his abnormal EKG a cardiac catheterization with possible revascularization was recommended. Risks and benefits were discussed. The patient gave consent to proceed. After informed consent was obtained the patient was brought to the heart catheterization lab. The ar ea of the right femoral artery was prepared in usual manner with Betadine, sterile draping and local anesthetic. An 18-gauge needle was used to enter the right femoral artery, a wire placed and a 6 Adam nch sheath placed over the wire. A 6 [place]uneian Vikash diagnostic right catheter was used to engage th e RCA and sequential injections of various views were obtained. A 6 [place]uneian JL4 guide was then used t o engage the left system. Sequential injections in various views were obtained. A pigtail catheter was advanced in the left ventricle. Measurements were obtained. A 30 degree RODGERS left ventriculogram was performed. Pullback pressures were measured. All catheter placements were over a J-wire. Foll owing our imaging the patient was found to have a mid 40% LAD lesion. No severe lesions were identif ied. At this time the patient was pain-free. The catheter was removed. The sheath was removed and sealed with an Angio-Seal. The patient was moved to the holding area. No immediate complications w ere identified. Findings. Hemodynamics. LV 140/2/18. Aortic root 134/68. Coronaries. Left main. The left main was a large vessel with no lesions. Left anterior descending. The LAD was a moderate size vessel with normal distribution. It had a mid 40% lesion present. Left circumflex. The left circumflex was a moderate size vessel. It had no lesions. Right coronary artery. The right coronary was a moderate size vessel. It had no lesions. Left ventriculogram. The left ventricle showed normal size and systolic function. Estimated ejection fraction was 55%. <Conclusion> 1. Moderate single-vessel coronary artery disease. 2. Intact LV systolic function. No sedation was given. Fluoroscopy time of 4.1 minutes. Dose. 51.3 Gycm2 Contrast. 140 cc VISI The patient was independently monitored throughout the procedure. All protective equipment was employed. Estimated blood loss of 15 cc. Signed by : Harsh Dickinson MD Electronically Approved : 08/19/2021 10:23:50
[2021-08-19] MEDS: ISOSORBIDE MONONITRATE ER 30 MG TAB.ER.24H PO SCH (13:05)
--- NOTE | 2021-08-19 16:02 | CARD ---
MR#: [id number] Date of Study: 08/19/2021 Ordering Physician: GRACE SWENSON, Referring Physician: GRACE SWENSON Tech: Robert Zimmer [facility] APPROVED REPORT EXAM: Two-dimensional and M-mode echocardiogram with Doppler and color Doppler. Other Information Quality : AverageGoodHR: 60bpm Rhythm : NSR INDICATION Anterior STEMI due to vasospasm. RISK FACTORS Hypertension Smoking 2D DIMENSIONS Left Atrium(2D)3.1 (1.6-4.0cm)IVSd1.6 (0.7-1.1cm) Aortic Root(2D)4.4 (2.0-3.7cm)LVDd4.4 (3.9-5.9cm) LVOT Diameter2.4 (1.8-2.4cm)PWd1.6 (0.7-1.1cm) LA Tzfygm00 (18-58mL)LVDs3.1 (2.5-4.0cm) FS (%) 27.9 %SV46.4 ml LVEF(%)54.3 (>50%) Aortic Valve AoV Peak Zhen.127.2cm/sAoV VTI22.9cm AO Peak GR.6.5mmHgLVOT VTI 19.62cm AO Mean GR.3mmHgAI P 1/2 [id number] Mitral Valve MV E Utecregg85.9cm/sMV E Peak Gr.3mmHg MV DECEL [id number] A Vixxqvhc81.7cm/s MV E Mean Gr.1mmHgE/A Ratio1.2 TDI Lateral E' P. V7.08cm/sMedial E' P. V5.73cm/s E/Lateral E'8.3E/Medial E'10.3 Pulmonary Valve PV Peak Djqkswnt33.8cm/s Tricuspid Valve TR P. Lztmadgd197mh/sTR Peak Gr.10mmHg Pulmonary Vein S1 Znkqfget58.6cm/sS2 Emcblzkc39.26cm/s D2 Zuyydzob39.3cm/s LEFT VENTRICLE The left ventricle is normal size. There is moderate concentric left ventricular hypertrophy. The lef t ventricular systolic function is normal. The ejection fraction is 55%. There is normal LV segmental wall motion. Tissue Doppler imaging reveals moderate left ventricular diastolic dysfunction. No left ventricle thrombus noted on this study. There is no ventricular septal defect visualized. There is n o left ventricular aneurysm. There is no mass noted in the left ventricle. RIGHT VENTRICLE The right ventricle is normal size. There is normal right ventricular wall thickness. The right ventr icular systolic function is normal. ATRIA The left atrium size is normal. The right atrium size is normal. The interatrial septum is intact wit h no evidence for an atrial septal defect or patent foramen ovale as noted on 2-D or Doppler imaging. AORTIC VALVE The aortic valve is mildly thickened but opens well. The aortic valve is trileaflet. Doppler and Sturgeon r Flow revealed mild aortic regurgitation. There is no significant aortic valvular stenosis. There is no aortic valvular vegetation. MITRAL VALVE The mitral valve is normal in structure and function. There is no evidence of mitral valve prolapse. There is no mitral valve stenosis. Doppler and Color-flow revealed trace to mild mitral regurgitation . TRICUSPID VALVE The tricuspid valve is normal in structure and function. Doppler and Color Flow revealed trace tricus pid regurgitation. There is no tricuspid valve prolapse or vegetation. There is no tricuspid valve st enosis. PULMONIC VALVE The pulmonary valve is normal in structure and function. There is trivial pulmonic regurgitation. The re is no pulmonic valvular stenosis. GREAT VESSELS The aortic root is dilated at 4.4cm The proximal ascending aorta is mildly dilated at (4.1cm) The pul monary artery is normal. The IVC is normal in size and collapses >50% with inspiration. PERICARDIAL EFFUSION There is no pleural effusion. There is no evidence of significant pericardial effusion. Critical Notification Critical Value: No <Conclusion> The left ventricular systolic function is normal. The ejection fraction is 55%. There is normal LV segmental wall motion. Mild aortic regurgitation. Trace to mild mitral regurgitation. Trace tricuspid regurgitation. The aortic root is dilated at 4.4 cm. There is no evidence of significant pericardial effusion. Signed by : Canelo Elam, Electronically Approved : 08/19/2021 16:02:05
[2021-08-19] MEDS: HYDROcodone/APAP 5/325MG 1 TAB TABLET PO PRN (20:44)
[2021-08-19] MEDS: HEPARIN 25,000UTS/250ML PREMIX 250 ML IV PRN (20:46)
[2021-08-19] MEDS ORDERED: ATORVASTATIN CALCIUM 20 MG TABLET PO SCH (21:00)
[2021-08-20 02:15] VITALS: BP 148/73
[2021-08-20 07:00] VITALS: BP 135/87
[2021-08-20] MEDS ORDERED: CLOPIDOGREL BISULFATE 75 MG TABLET PO SCH (08:00)
[2021-08-20] MEDS ORDERED: ASPIRIN ENTERIC COATED 81 MG TABLET.DR. PO SCH (08:00)
[2021-08-20] MEDS: ISOSORBIDE MONONITRATE ER 30 MG TAB.ER.24H PO SCH (08:35)
[2021-08-20] MEDS ORDERED: ISOSORBIDE MONONITRATE ER 30 MG TAB.ER.24H PO SCH (09:00)
[2021-08-20] MEDS: HYDROcodone/APAP 5/325MG 1 TAB TABLET PO PRN (10:21)
[2021-08-20 11:00] VITALS: BP 142/80
--- NOTE | 2021-08-20 11:02 | PDOC ---
GRACE SWENSON RADIO STATION OPERATOR 08/20/21 1101: CARDIO Progress Notes Date and Time Date of Service 08/20/2021 Time of Evaluation 1100 Subjective Subjective: No Chest Pain, No shortness of breath, No Palpitations Vitals Vitals Vital Signs Date Time Temp Pulse Resp B/P (MAP) Pulse Ox O2 Delivery O2 Flow Rate FiO2 08/20/21 10:21 18 08/20/21 08:35 65 135/87 08/20/21 07:00 98.1 98 Room Air 98.1 Weight Weight [ ] Input and Output Intake and Output Intake and Output 08/20/21 07:00 Intake Total 2708.8 ml Output Total 2780 ml Balance -71.2 ml Intake Oral 2700 ml IV Total 8.8 ml Output Urine Total 2780 ml Laboratory Labs Laboratory Tests Test 08/19/21 11:14 08/19/21 19:46 08/20/21 03:00 08/20/21 09:08 Heparin Anti-Xa Act, Unfractionated 0.28 IU/mL (0.30-0.70) 0.29 IU/mL (0.30-0.70) 0.55 IU/mL (0.30-0.70) 0.63 IU/mL (0.30-0.70) Physical Exam HEENT: Neck Supple W Full Motion Chest: Symmetric LUNGS: Clear to Auscultation Heart: S1S2, RRR (SR/SB) Abdomen: Soft N/T Extremities: No Calf Tenderness Neurology: alert, oriented, follow commands Assessment Assessment 1. Anterior STEMI: due to vasopasm with also possible myocardial bridging.. LHC revealed no intervenable lesions. 40% lesion to LAD 2. HTN: better controlled 3. Tobaccoism 4. Asymptomatic SB: lowest mid40s no pauses 5. Moderate LVH: no HOCM. EF and LV WM nml Recommendations 1. Continue imdur and norvasc 2. ASA/plavix. plavix for at least 1 mo. Secondary prevention measures 3. Anticpate DC today 4. He is going back to [place] and he will need cardiology referral over there 5. Smoking cessation Justicifation of Admission Dx: Justifications for Admission: Justification of Admission Dx: Yes HARSH BENTLEY MD 08/20/21 1618: CARDIO Progress Notes Assessment Assessment Patient seen and examined The patient looks well and denies chest pain. Anterior NSTEMI: Probably due to vasopasm with also possible myocardial bridging.. LHC revealed no intervenable lesions. 40% lesion to LAD. Continue on present medications including aspirin, Plavix, Imdur and Norvasc. Follow-up at home. HTN: better controlled Tobaccoism Asymptomatic SB: lowest mid 40s no pauses Moderate LVH: no HOCM. EF and LV WM nml GRACE SWENSON APRN Aug 20, 2021 11:01 HARSH BENTLEY MD Aug 20, 2021 16:18
--- NOTE | 2021-08-20 11:49 | PDOC ---
[facility] PROGRESS NOTE Date of Service DOS: DATE: 08/20/21 TIME: 11:37 Chief Complaint Chief Complaint Anterior STEMI - per cardiology was coronary vasopasm. No significant CAD. Myocardial bridging noted by focus puller. HTN -started on amlodipine isosorbide Tobacco use - counseled on cessatino Sinus bradycardia -asymptomatic. Will check orthostatics after echocardiogram. Unable to take beta-cyrus or non-dihydropyridine calcium channel cyrus (verapamil and diltiazem relatively contraindicated) ? H/o HOCM -with early cardiac actions monitor this possibility. Due to his traveling for work he has not had any cardiology follow-up. Will assess on echocardiogram today FEN - Cardiac diet PPX - Heparin FULL CODE Dispo - inpatient History of Present Illness History of Present Illness Patient is a 46-year-old male with past medical history hypertension, who presents to the ED with complaints of left-sided chest pain for the past week. Patient reports squeezing, crushing pressure. He was brought into the ER as a code STEMI. EKG on arrival showed ST elevations in lead 1, aVL, and anterior wall ST elevations. Cardiology was consulted and will take patient to the Strategic Marketing Manager. 08/19: Maintained on heparin GTT. S/p cardiac cath on 08/18/2021 with no stent placement, medical management for CAD. He has some right groin pain currently chest pain improved no shortness of breath. Did have cardiac cath in [place] over 2 years ago with same but he notes that time he was diagnosed with HOCM. He does note his mother early of sudden cardiac he thinks in her 50s. He travels for work and has been working in [employer] all of the country has experienced any other hospitalizations since his event 2 years ago. Cardiology has started her blood isosorbide and amlodipine. His heart rate has been in the 50s.. 08/20: Patient seen and evaluated. No chest pain today. Heparin gtt has been discontinued. Had echocardiogram that showed normal LV wall motion, mild aortic regurgitation, dilated aortic root at 4.4 cm, EF 55%. Had anterior NSTEMI, possibly due to vasospasms, as well as moderate to mild LAD disease. He was initiated on Imdur and Norvasc. He was also discharged on aspirin and Plavix for 1 month until he can follow-up with cardiology. Greater than 30 minutes spent managing discharge of this patient. Vitals/I&O Vitals/I&O: Vital Signs Date Time Temp Pulse Resp B/P (MAP) Pulse Ox O2 Delivery O2 Flow Rate FiO2 08/20/21 11:00 97.5 69 17 142/80 (100) 95 Room Air 97.5 I & O 08/19/21 08/19/21 08/20/21 15:00 23:00 07:00 Intake Total 1058.8 ml 450 ml 1200 ml Output Total 650 ml 430 ml 1700 ml Balance 408.8 ml 20 ml -500 ml Physical Exam General: Alert, Oriented X3, Cooperative, No acute distress Heart: Regular rate Lungs: Clear Abdomen: Normal bowel sounds Extremities: No clubbing, No cyanosis Skin: No rashes Labs Labs: Laboratory Tests Test 08/19/21 19:46 08/20/21 03:00 08/20/21 09:08 Heparin Anti-Xa Act, Unfractionated 0.29 IU/mL (0.30-0.70) 0.55 IU/mL (0.30-0.70) 0.63 IU/mL (0.30-0.70) Assessment and Plan Assessmemt and Plan Problems Medical Problems: (1) STEMI (ST elevation myocardial infarction) Status: Acute Comment Review of Relevant I have reviewed the following items diana (where applicable) has been applied. Medications: Current Medications Medications (Trade) Dose Ordered Sig/Gloria Route PRN Reason Start Time Stop Time Status Last Admin Dose Admin Aspirin (Ecotrin) 81 mg DAILYWBKFT PO 08/20/21 08:00 08/20/21 08:34 Clopidogrel Bisulfate (Plavix) 75 mg DAILYWBKFT PO 08/20/21 08:00 08/20/21 08:35 Atorvastatin Calcium (Lipitor) 20 mg QHS PO 08/19/21 21:00 08/19/21 20:43 Isosorbide Mononitrate (Imdur) 30 mg DAILY PO 08/19/21 12:00 08/20/21 08:35 Amlodipine Besylate (Norvasc) 10 mg DAILY PO 08/20/21 09:00 08/20/21 08:34 Justifications for Admission Other Justification JANELLE RINCON MD Aug 20, 2021 11:49
--- NOTE | 2021-08-20 11:54 | NUR ---
SS following for discharge planning. SS reviewed pt chart and discussed with pt RN. Pt is from home and is currently on room air. Cardiology following. Pt requesting to discharge and requesting transportation. Cardiology okay with discharge. RN Brinell Tester, met with pt and will provide cab pass. Discussed with physician and discharge orders being completed. Pt's RN notified.
--- NOTE | 2021-08-20 11:57 | PDOC3 ---
Discharge Summary Visit Information Date of Admission: Aug 18, 2021 Date of Discharge: Aug 20, 2021 Final Diagnosis Problems Medical Problems: (1) STEMI (ST elevation myocardial infarction) Status: Acute Brief Hospital Course Allergies Allergies Coded Allergies Type Severity Reaction Last Updated Verified No Known Drug Allergies 08/18/21 No Vital Signs Vital Signs Date Time Temp Pulse Resp B/P (MAP) Pulse Ox O2 Delivery O2 Flow Rate FiO2 08/20/21 11:00 97.5 69 17 142/80 (100) 95 Room Air 97.5 Lab Results Laboratory Tests Test 08/18/21 18:30 08/18/21 21:50 08/19/21 05:25 08/19/21 11:14 White Blood Count 5.4 x10^3/uL (4.0-11.0) 5.7 x10^3/uL (4.0-11.0) Red Blood Count 5.34 x10^6/uL (4.30-5.70) 5.24 x10^6/uL (4.30-5.70) Hemoglobin 15.5 g/dL (13.0-17.5) 15.3 g/dL (13.0-17.5) Hematocrit 45.8 % (39.0-53.0) 44.7 % (39.0-53.0) Mean Corpuscular Volume 86 fL (79-100) 85 fL (79-100) Mean Corpuscular Hemoglobin 29 pg (25-35) 29 pg (25-35) Mean Corpuscular Hemoglobin Concent 34 g/dL (31-37) 34 g/dL (31-37) Red Cell Distribution Width 14.8 % (11.5-14.5) 14.9 % (11.5-14.5) Platelet Count 223 x10^3/uL (140-400) 206 x10^3/uL (140-400) Neutrophils (%) (Auto) 56 % (31-73) 52 % (31-73) Lymphocytes (%) (Auto) 29 % (24-48) 32 % (24-48) Monocytes (%) (Auto) 11 % (0-9) 11 % (0-9) Eosinophils (%) (Auto) 4 % (0-3) 4 % (0-3) Basophils (%) (Auto) 1 % (0-3) 1 % (0-3) Neutrophils # (Auto) 3.0 x10^3/uL (1.8-7.7) 2.9 x10^3/uL (1.8-7.7) Lymphocytes # (Auto) 1.6 x10^3/uL (1.0-4.8) 1.8 x10^3/uL (1.0-4.8) Monocytes # (Auto) 0.6 x10^3/uL (0.0-1.1) 0.6 x10^3/uL (0.0-1.1) Eosinophils # (Auto) 0.2 x10^3/uL (0.0-0.7) 0.2 x10^3/uL (0.0-0.7) Basophils # (Auto) 0.1 x10^3/uL (0.0-0.2) 0.1 x10^3/uL (0.0-0.2) Prothrombin Time 12.9 SEC (11.7-14.0) Prothromb Time International Ratio 1.0 (0.8-1.1) Sodium Level 140 mmol/L (136-145) 139 mmol/L (136-145) Potassium Level 3.9 mmol/L (3.5-5.1) 3.9 mmol/L (3.5-5.1) Chloride Level 104 mmol/L (98-107) 106 mmol/L (98-107) Carbon Dioxide Level 30 mmol/L (21-32) 27 mmol/L (21-32) Anion Gap 6 (6-14) 6 (6-14) Blood Urea Nitrogen 13 mg/dL (8-26) 11 mg/dL (8-26) Creatinine 1.3 mg/dL (0.7-1.3) 1.1 mg/dL (0.7-1.3) Estimated GFR (Cockcroft-Gault) 58.9 71.4 BUN/Creatinine Ratio 10 (6-20) Glucose Level 105 mg/dL (70-99) 88 mg/dL (70-99) Calcium Level 9.5 mg/dL (8.5-10.1) 8.4 mg/dL (8.5-10.1) Total Bilirubin 0.4 mg/dL (0.2-1.0) Aspartate Amino Transf (AST/SGOT) 16 U/L (15-37) Alanine Aminotransferase (ALT/SGPT) 18 U/L (16-63) Alkaline Phosphatase 93 U/L (46-116) Troponin I High Sensitivity 125 ng/L (4-75) 136 ng/L (4-75) 137 ng/L (4-75) Total Protein 7.0 g/dL (6.4-8.2) Albumin 3.5 g/dL (3.4-5.0) Albumin/Globulin Ratio 1.0 (1.0-1.7) Heparin Anti-Xa Act, Unfractionated 0.44 IU/mL (0.30-0.70) 0.28 IU/mL (0.30-0.70) Triglycerides Level 61 mg/dL (0-150) Cholesterol Level 158 mg/dL (0-200) LDL Cholesterol, Calculated 89 mg/dL (0-100) VLDL Cholesterol, Calculated 12 mg/dL (0-40) Non-HDL Cholesterol Calculated 101 mg/dL (0-129) HDL Cholesterol 57 mg/dL (40-60) Cholesterol/HDL Ratio 2.8 Test 08/19/21 19:46 08/20/21 03:00 08/20/21 09:08 Heparin Anti-Xa Act, Unfractionated 0.29 IU/mL (0.30-0.70) 0.55 IU/mL (0.30-0.70) 0.63 IU/mL (0.30-0.70) Laboratory Tests Test 08/19/21 19:46 08/20/21 03:00 08/20/21 09:08 Heparin Anti-Xa Act, Unfractionated 0.29 IU/mL (0.30-0.70) 0.55 IU/mL (0.30-0.70) 0.63 IU/mL (0.30-0.70) Brief Hospital Course Mr. Macdonald is a 46 old male who presented with NSTEMI. Consultation was placed to cardiology. He was placed on heparin gtt. Had left heart cath that showed moderate single-vessel coronary artery disease, intact LV systolic function. No significant CAD he was started on Norvasc and Imdur. 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 Discharge Information Condition at Discharge: Improved Disposition/Orders: D/C to Home Justicifation of Admission Dx: Justifications for Admission: Justification of Admission Dx: Yes JANELLE RINCON MD Aug 20, 2021 11:57
[2021-08-20] MEDS ORDERED: ISOS30TA68 PO (12:01)
[2021-08-20] MEDS ORDERED: ATOR20TA58 PO (12:01)
[2021-08-20] MEDS ORDERED: CLOP75TA PO (12:01)
[2021-08-20] MEDS ORDERED: ASPI-886 PO (12:01)
[2021-08-20] MEDS ORDERED: AMLO-187 PO (12:01)
--- NOTE | 2021-08-20 18:06 | NUR ---
Pt. had some urgency related to discharge and needed help with transportation. Nursing sales representative supervisor worked on transportation set up after communicating with the patient. Pt. discharged around 1400, cab being arranged. Pt. stable at the time of discharge
== END 2021-08-20 13:50 | disposition home or self-care (01) | DRG 281 ==
LOC: ER 18:22 → 1 WEST ICU 18:47 → 6 SOUTH 08-19 18:35
PROVIDERS: ADMIT Family Medicine; ATTEND Family Medicine
PROC: 4A023N7 Measurement of Cardiac Sampling and Pressure, Left Heart, Percutaneous Approach (ICD-10-PCS; principal; 2021-08-18)
PROC: B2111ZZ Fluoroscopy of Multiple Coronary Arteries using Low Osmolar Contrast (ICD-10-PCS; 2021-08-18)
PROC: B2151ZZ Fluoroscopy of Left Heart using Low Osmolar Contrast (ICD-10-PCS; 2021-08-18)
DX: I21.09 ST elevation (STEMI) myocardial infarction involving other coronary artery of anterior wall (principal); I42.1 Obstructive hypertrophic cardiomyopathy; Q24.5 Malformation of coronary vessels; F17.210 Nicotine dependence, cigarettes, uncomplicated; I10 Essential (primary) hypertension; I25.2 Old myocardial infarction; I77.810 Thoracic aortic ectasia; Z63.4 Disappearance and death of family member; Z82.49 Family history of ischemic heart disease and other diseases of the circulatory system; Z71.6 Tobacco abuse counseling
CPT/HCPCS: 93458; 96365; 96375; 99285; G0269; 36415; 71045; 80048; 80053; 80061; 84484; 85025; 85520; 85610; 93005; 93306; 99152; 99153; C1769; C1894; J1644; J3490; Q9967; C8929; G0378